=== PATIENT | male | born 1960 | race Caucasian/White ===

== ENCOUNTER 2022-12-04 08:51 | Outpatient (CLI) | payer BC | END 2022-12-04 08:52 | disposition home or self-care (01) | LOC: CSHMRI 08:51 | PROVIDERS: ATTEND Surgery | DX: M54.50 Low back pain, unspecified (principal); M25.511 Pain in right shoulder; R20.2 Paresthesia of skin; R93.7 Abnormal findings on diagnostic imaging of other parts of musculoskeletal system; M75.91 Shoulder lesion, unspecified, right shoulder; M24.011 Loose body in right shoulder; Z98.890 Other specified postprocedural states; M19.011 Primary osteoarthritis, right shoulder; M47.816 Spondylosis without myelopathy or radiculopathy, lumbar region; M71.38 Other bursal cyst, other site | CPT/HCPCS: 72110; 72148 ==

== ENCOUNTER 2024-09-29 15:51 | Emergency (ER) | payer BC ==
[~2024-09-29 15:51] MED LIST: Iopamidol 300 61% 100 ML VIAL FS ONE
[2024-09-29] MEDS ORDERED: Ondansetron PF 4 MG/2 ML Vial ONE (16:21)
[2024-09-29 17:09] LABS: #Basophils Less than 0.03 10x3/uL (0.0-0.2); #Eosinophils Less than 0.03 10x3/uL (0.0-0.5); #Monocytes 0.98 10x3/uL (0.0-1.1); #Neutrophils 13.83 10x3/uL (1.5-8.4); %Basophils 0.1 % (0.0-2.0); %Eosinophils 0.1 % (0.0-6.0); %Lymphocytes 6.0 % (18.0-47.0); %Monocytes 6.2 % (0.0-10.0); %Neutrophils 87.0 % (40.0-75.0); Hematocrit 35.9 % (38.8-50.0); Hemoglobin 12.6 g/dL (13.5-17.5); Mean Corpuscular Hemoglobin 31.5 pg (27.0-33.0); Mean Corpuscular Volume 89.8 fL (81.2-95.1); Platelet Count 570 10x3/uL (150-450); Red Blood Cell (RBC) Count 4.00 10x6/uL (4.32-5.72); White Blood Cell (WBC) Count 15.89 10x3/uL (3.5-10.5)
[2024-09-29 17:20] LABS: ALT (SGPT) 16 U/L (Less than 45); AST (SGOT) 16 U/L (11-34); Albumin 3.6 g/dL (3.1-4.5); Alkaline Phosphatase 64 U/L (40-110); Anion Gap 19 mmol/L (10-20); BUN (Urea Nitrogen) 17 mg/dL (8.4-25.7); Bilirubin, Total 0.5 mg/dL (0.3-1.2); Calc. Creatinine Clearance 0 mL/min (70-130); Calcium 10.1 mg/dL (7.8-10.44); Carbon Dioxide 17 mmol/L (23-31); Chloride 104 mmol/L (98-107); Globulin 4.4 g/dL (2.4-3.5); Glucose 117 mg/dL (80-115); Lipase 9 U/L (8-78); Potassium 4.6 mmol/L (3.5-5.1); Sodium 135 mmol/L (136-145)
== END 2024-09-29 19:19 | disposition home or self-care (01) ==
LOC: CSHERS 15:51
DX: K52.9 Noninfective gastroenteritis and colitis, unspecified (principal)
CPT/HCPCS: 74177; 80053; 83690; 85025; 96374; 96375; 96376; J2270; J2405; J2543; Q9967